=== PATIENT | female | born 1945 | race Caucasian/White ===

== ENCOUNTER 2019-01-25 18:49 | Emergency (ER) | payer OTHER ==
[~2019-01-25] VITALS: Ht 165.1 cm; Wt 61.7 kg
[2019-01-25] MEDS ORDERED: LEVOXYL50 MCG PO (19:04)
[2019-01-25] MEDS ORDERED: TRAZODONE HCL50 MG PO (19:05)
[2019-01-25] MEDS ORDERED: NEURONTIN 300300 M1 PO (19:05)
[2019-01-25] MEDS ORDERED: CYMBALTA60 MG PO (19:05)
[2019-01-25] MEDS ORDERED: OXYCONTIN20 M1 PO (19:06)
[2019-01-25 19:39] LABS: ABSOLUTE BASOPHILS 0.1 thou/uL (0.0-0.2); ABSOLUTE EOSINOPHILS 0.5 thou/uL (0.0-0.7); ABSOLUTE LYMPHOCYTES 1.8 thou/uL (0.8-5.3); ABSOLUTE MONOCYTES 0.8 thou/uL (0.0-1.2); ABSOLUTE NEUTROPHILS 5.3 thou/uL (1.6-8.1); BASOPHILS 0.9 %; EOSINOPHILS 5.7 %; HEMATOCRIT 34.9 % (37.0-47.0); HEMOGLOBIN 11.5 gm/dL (12.0-15.0); LYMPHOCYTES 21.3 %; MCH 31.6 pg (26.0-34.0); MCHC 32.8 g/dL (28.0-37.0); MCV 96.2 fL (80.0-100.0); MONOCYTES 9.4 %; MPV 8.3 fl. (7.2-11.1); NUCLEATED RBCS 0 /100WBC; PLATELET COUNT* 265 thou/uL (150-400); POLYS 62.7 %; RBC 3.63 mil/uL (4.20-5.00); RDW-CV 14.5 % (10.5-14.5); WBC 8.4 thou/uL (4.0-11.0)
[2019-01-25 19:47] LABS: CALCIUM 8.9 mg/dL (8.5-10.1); POTASSIUM 3.6 mmol/L (3.5-5.1)
[2019-01-25 19:52] LABS: ALBUMIN 3.5 g/dL (3.4-5.0); TOTAL BILIRUBIN 0.2 mg/dL (<0.1-1.0); TOTAL PROTEIN 6.8 g/dL (6.4-8.2)
[2019-01-25 20:14] VITALS: BP 154/72
== END 2019-01-25 20:14 | disposition home or self-care (01) ==
LOC: M.ERS 18:49
PROVIDERS: Nurse Practitioner Family
DX: M79.672 Pain in left foot (principal); F32.9 Major depressive disorder, single episode, unspecified; E03.9 Hypothyroidism, unspecified